=== PATIENT | male | born 1965 | race Caucasian/White ===

== ENCOUNTER 2018-08-02 10:49 | Outpatient (CLI) | payer BC, SELFPAY ==
[2018-08-02 13:09] LABS: ALT 45 U/L (12-78); AST 23 U/L (15-37); Albumin 3.7 g/dL (3.4-5.0); Alkaline Phosphatase 92 U/L (46-116); Anion Gap 4.7 mmol/L (3-11); BUN 24 mg/dL (7-18); Bilirubin, Total 0.9 mg/dL (0.2-1.0); CO2 31.3 mmol/L (21.0-32.0); CREATININE 1.11 mg/dL (0.70-1.30); Calcium 8.7 mg/dL (8.5-10.1); Chloride 103 mmol/L (98-107); Cholesterol 145 mg/dL (50-200); Glucose 93 mg/dL (70-100); HDL Cholesterol 40 mg/dL (40-60); LDL CHOLESTEROL 93 mg/dL (<100); Potassium 4.1 mmol/L (3.5-5.1); Sodium 139 mmol/L (136-145); Total Protein 6.8 g/dL (6.4-8.2); Triglyceride 157 mg/dL (30-150)
== END 2018-08-02 11:09 ==
PROVIDERS: PCP Family Medicine; Visit Provider Family Medicine
DX: I10 Essential (primary) hypertension (principal)
CPT/HCPCS: 36415; 80053; 80061; 83721

== ENCOUNTER 2019-11-07 07:00 | Outpatient (CLI) | payer BC, SELFPAY ==
[2019-11-07 10:38] LABS: Abs Immature Grans 0.03 k/cumm (0.0-0.09); Absolute Basophil Count 0.02 k/cumm (0.0-0.2); Absolute Eosinophil Count 0.08 k/cumm (0.0-0.7); Absolute Lymphocyte Count 2.19 k/cumm (1.2-3.4); Absolute Monocyte Count 0.77 k/cumm (0.11-0.7); Absolute Neutrophil Count 5.01 k/cumm (1.2-6.7); Basophils % 0.2; HCT 45.4 % (40.0-50.0); HGB 15.8 g/dL (13.5-17.5); Immature Grans % 0.4 %; Mean Corp. HGB Concentration 34.8 g/dL (32.0-36.0); Mean Corpuscular Hemoglobin 33.8 pg (27.0-33.0); Mean Platelet Volume 8.4 fL (8.0-11.0); Monocytes % 9.5; Neutrophils % 61.9; Platelet Count 300 x1000/uL (130-400); RBC 4.68 m/cumm (4.50-6.00); RBC Distribution Width 12.9 % (11.8-14.1)
[2019-11-07 10:49] LABS: ALT 44 U/L (16-63); AST 30 U/L (15-37); Alkaline Phosphatase 74 U/L (46-116); Anion Gap 10.1 mmol/L (3-11); BUN 15 mg/dL (7-18); Bilirubin, Total 0.8 mg/dL (0.2-1.0); CO2 28.9 mmol/L (21.0-32.0); CREATININE 0.97 mg/dL (0.70-1.30); Calcium 9.2 mg/dL (8.5-10.1); Chloride 99 mmol/L (98-107); Glucose 97 mg/dL (74-106); Potassium 3.6 mmol/L (3.5-5.1); Sodium 138 mmol/L (136-145); Total Protein 7.4 g/dL (6.4-8.2)
== END 2019-11-07 07:20 ==
PROVIDERS: PCP Family Medicine; Visit Provider Family Medicine
DX: R55 Syncope and collapse (principal)
CPT/HCPCS: 36415; 80053; 85025

== ENCOUNTER 2019-12-20 02:02 | Outpatient (CLI) | payer BC, SELFPAY ==
--- NOTE | 2019-12-20 14:00 | DI.CTLCSR_ITS ---
EXAM: CT CHEST LUNG CANCER SCREEN CLINICAL HISTORY: SCREENING FOR LUNG CANCER, Z12.2 SCREENING FOR MALIGNANT NEOPLASM OF RESPIRATORY O RGANS TECHNIQUE: CT examination of chest was performed utilizing low-dose lung cancer screening protocol. COMPARISON: No exams were available for comparison FINDINGS: The ascending aorta appears ectatic at 4.6-4.7 cm diameter. No mediastinal or hilar adenopathy seen. No pleural effusion. Images obtained through the upper abd omen show a low attenuation left renal lesion consistent with cyst and unremarkable appearance of vis ualized portions of liver, spleen and pancreas. No pulmonary nodule identified. IMPRESSION: Negative low-dose chest CT, category 1. Continue annual screening with LDCT in 12 months Lung RADS Cat 1 - Negative: No nodules and definitely benign nodules
== END 2019-12-20 02:22 ==
PROVIDERS: PCP Family Medicine; Visit Provider Family Medicine
DX: Z12.2 Encounter for screening for malignant neoplasm of respiratory organs (principal); N28.1 Cyst of kidney, acquired; I77.819 Aortic ectasia, unspecified site
CPT/HCPCS: G0297

== ENCOUNTER 2020-02-01 09:42 | Outpatient (CLI) | payer BC, SELFPAY ==
[2020-02-04 22:17] LABS: SARS-CoV-2 RNA Undetected (Undetected); SARS-CoV-2 Specimen Source Nasopharynx
== END 2020-02-01 10:02 ==
PROVIDERS: PCP Family Medicine; Visit Provider Family Medicine
DX: Z11.59 Encounter for screening for other viral diseases (principal)
CPT/HCPCS: U0003

== ENCOUNTER 2020-12-06 01:25 | Outpatient (CLI) | payer BC, SELFPAY ==
--- NOTE | 2020-12-06 09:00 | DI.CTLCSR_ITS ---
EXAM: CT CHEST LUNG CANCER SCREEN CLINICAL HISTORY: Screening for lung cancer, CURRENT SMOKER, F17.200 TECHNIQUE: Imaging Protocol: Axial computed tomography images with coronal and sagittal reformatted images were created and reviewed COMPARISON: CT CT CHEST LUNG CANCER SCREEN from 12/20/2019 FINDINGS: Tracheobronchial tree: Patent where visualized. Mediastinum and Taryn: No dominant adenopathy or fluid collection. Pulmonary parenchyma: No consolidation or dominant measurable mass. No architectural distortion. Lung Nodules: None. Pleura: No effusion or pneumothorax. Heart: The heart is not dilated. Moderate to severe coronary artery calcifications are seen. No peric ardial effusion. Aorta: Ascending aorta ectatic at 4.6 cm minimal calcification. Upper abdomen: Cyst upper pole left kidney. Bones: Degenerative changes in the spine. Soft Tissues: Unremarkable. IMPRESSION: Normal low dose CT lung screening Category Lung RADS Cat 1 - Negative: No nodules and definitely benign nodules Lung-RADS 1.0 CATEGORIES: Category 0 - Prior chest CT exam(s) being located for comparison. Category 1 - Annual screening in 12 months. No nodules or definitely benign nodules. Category 2 - Annual screening in 12 months. Benign appearance. Nodules with low likelihood of becomin g active cancer. Category 3 - 6-month follow-up. Probably benign. Short-term follow-up suggested. Nodules with low lik elihood of becoming active cancer. Category 4A - 3-month follow-up and CT/PET if >8 mm in size. Suspicious finding. Findings which requi re additional testing. Category 4B - Findings which require additional testing and tissue sampling. Suspicious finding. C Added to Any of the Above - History of prior lung cancer screening. S Added to Any of the Above - Significant unexpected other finding. RADIATION DOSE DELIVERED: 116.74mGy.cm Total DLP DATA REPOSITORY: All CT scans at this facility are submitted to the National Radiology Data Registry (NRDR) Dose Index Registry (DIR) with the [employer] (ACR). RADIATION OPTIMIZATION: All CT scans at this facility use at least one of these dose optimization te chniques: automated exposure control; mA and/or kV adjustment per patient size (includes targeted exa ms where dose is matched to clinical indication); or iterative reconstruction.
== END 2020-12-06 01:26 ==
LOC: DI 01:25
PROVIDERS: PCP Family Medicine; Visit Provider Nurse Practitioner Family
DX: F17.200 Nicotine dependence, unspecified, uncomplicated (principal)
CPT/HCPCS: 71271

== ENCOUNTER 2020-12-21 02:20 | Outpatient (CLI) | payer BC, SELFPAY ==
[2020-12-21 08:12] LABS: Hemoglobin A1C 5.7 % (<5.7)
[2020-12-21 09:21] LABS: BUN 21 mg/dL (7-18); CREATININE 0.9 mg/dL (0.70-1.30); Calculated LDL 91 mg/dL (<100); Chloride 101 mmol/L (98-107); Cholesterol 162 mg/dL (<200); Glucose 94 mg/dL (74-106); HDL Cholesterol 50 mg/dL (40-60); Potassium 3.8 mmol/L (3.5-5.1); Sodium 136 mmol/L (136-145); Triglyceride 109 mg/dL (<150)
== END 2020-12-21 02:21 | disposition home or self-care (01) ==
LOC: LBO 02:20
PROVIDERS: Nurse Practitioner Family; PCP Family Medicine; Visit Provider Family Medicine
DX: Z00.00 Encounter for general adult medical examination without abnormal findings (principal); I10 Essential (primary) hypertension; Z13.1 Encounter for screening for diabetes mellitus
CPT/HCPCS: 36415; 80048; 80061; 83036

== ENCOUNTER 2021-01-14 03:22 | Outpatient (CLI) | payer BC, SELFPAY ==
[2021-01-14 10:06] LABS: Source Nasal/Nares
[2021-01-14 12:35] LABS: COVID-19 PCR Negative (Negative)
== END 2021-01-14 03:23 | disposition home or self-care (01) ==
LOC: LBO 03:23
PROVIDERS: PCP Family Medicine; Visit Provider Student in an Organized Health Care Education/Training Program
DX: Z20.822 Contact with and (suspected) exposure to COVID-19 (principal); Z01.818 Encounter for other preprocedural examination
CPT/HCPCS: 87635

== ENCOUNTER 2021-01-16 11:44 | Day surgery (SDC) | payer BC, SELFPAY ==
--- NOTE | 2021-01-16 10:13 | PDOC.DSDIS_ITS ---
Discharge Plan Disposition Patient Disposition: HOME Condition: Good Discharge Details Reason For Visit: Left ECTR and Left Trigger Thumb Release Attending Provider: Mikie Holman Primary Care Provider: Shy Holbrook Home Meds and New Rx's Prescriptions: New hydrocodone-acetaminophen 5-325 mg tablet 1 tab PO Q6H PRNQty: 5 RF: 0 Continued albuterol sulfate 90 mcg/actuation HFA aerosol inhaler 2 puff IH QID PRN (Reason: shortness of breath or wheezing) Qty: 18 RF: 4 amlodipine 10 mg tablet 5 mg PO DAILY Qty: 90 RF: 4 fluoxetine [Prozac] 20 mg capsule 20 mg PO DAILY Qty: 90 RF: 4 losartan 100 mg tablet 100 mg PO DAILY Qty: 90 RF: 4 hydrochlorothiazide 25 mg tablet 25 mg PO QAM Qty: 90 RF: 4 Discharge Instructions Stand Alone Forms: [place] C. Tunnel Release, [place] T. Finger Release Referrals: Mikie Holman MD [ [facility] STAFF PHYSICIAN] - Activity:: Activity as Tolerated Remove Dressings/Wound Care:: 72 hours Shower/Bathe:: 72 hours Diet:: As Tolerated Discharge Orders Discharge Orders: Discharge Order (Routine); Ordered 01/16/21 Ordered By: Colleen Casitllo DS: Diagnosis Discharge Diagnosis (1) Trigger finger of left thumb: Status: Acute (2) Left carpal tunnel syndrome: Status: Acute
[2021-01-16 11:56] VITALS: BP 131/79; PULSE 71; RESP 18; TEMP 36.2; O2SAT 95
[2021-01-16] MEDS: Lactated Ringers 1,000 ML 80 ML IV (12:19)
[2021-01-16] MEDS: ceFAZolin 2 GM/50 ML BAG IVPB (13:30)
[2021-01-16] MEDS: Sodium Bicarbonate 50 MEQ/50 ML VIAL (13:37)
[2021-01-16] MEDS: Acetaminophen 325 MG TAB 650 MG PO (14:28)
[2021-01-16 14:37] VITALS: BP 114/68; PULSE 71; RESP 17; TEMP 36.9; O2SAT 95
--- NOTE | 2021-01-16 15:20 | ROE_ITS ---
Date of service: 01/16/21 Time of Service: 14:20 Operative Note Operative Note DATE OF PROCEDURE: 01/16/21 PRE-OP DIAGNOSIS: Left Carpal Tunnel and Left Trigger Thumb POST-OP DIAGNOSIS: same PROCEDURE: Left Endoscopic Carpal Tunnel Release SURGEON: Mikie Holman ANESTHESIA TYPE: General:No Airway Refer to Anesthesia Record ESTIMATED BLOOD LOSS: 0 PATHOLOGY: none sent TOURNIQUET TIME: 16 COMPLICATIONS: None Patient was transported to: same day Patient's condition: stable Indications: I have seen Pernell in clinic for symptoms of carpal tunnel syndrome and a trigger thumb. The numbness, tingling, and pain limited function. Clinical exam findings confirmed the diagnosis of carpal tunnel syndrome. Nonoperative measures such as bracing, time, activity modifications had been tried but disability and pain persisted. I discussed carpal tunnel release with the patient. I reviewed the risks of the procedure to include, but not limited to, bleeding, infection, pain, stiffness, incomplete release, damage to nerves or vessels, persistent numbness, recurrence. Despite these risks, the patient elected to proceed. Findings: There was tightened carpal tunnel. This was dilated and released successfully with the endoscopic with increased space within the tunnel. The antebrachial fascia was released proximally freeing the median nerve at the wrist. The left thumb had a tightened A1 sangeeta as well as tight synovium proximal to the A1 sangeeta. This was release with extravasation of tenosynovial fluid. Tendons were then released. Procedure Description: Pernell was greeted in the preoperative holding area where the correct side was identified and marked. The consent was reviewed with the patient and signed. The history and physical was updated. All questions were answered. He was taken back to the operating room. The patient was placed into the supine position on the operating room table with the left arm on an arm board. A nonsterile tourniquet was placed high onto the arm. All bony prominences were well padded. Prophylactic antibiotics in the form of Cefazolin were administered. The arm was then prepped with Chloraprep and draped in a standard fashion with stockinette and extremity drape. A timeout to confirm correct identity, side and site, procedure, allergies, anesthesia, and medical concerns was performed. The surgical site was marked in the volar wrist creases in line with the radial border of the fourth ray along with the palpable A1 sangeeta of the thumb. These areas were anesthetized with approximately 10cc of 1% Lidocaine with epinephrine and buffered with sodium bicarbonate. The limb was then exsanguinated with an Esmarch. The skin was incised with a 15 blade, approximately 1cm. The skin only was cut and the deeper tissue was dissected bluntly with a tenotomy scissor , avoiding passing nerve and venous structures. The fascia was penetrated and opened bluntly. A two-prong skin hook was placed under this proximal fascial edge. A series of hamate finders were used to identify and dilate the carpal tunnel. Synovial elevator was used to free synovial attachments to the underside of the transverse carpal ligament. My thumb was kept in the palm to alberta the distal extent of the carpal tunnel and correctly position the hand. The Microaire endoscope was inserted without difficulty and without resistance. Excellent visualization showed horizontally running fibers of the transverse carpal ligament (TCL). The distal extent of the TCL was visualized and the end of the scope palpated with the thumb. The blade was elevated and withdrawn from distal to proximal. The TCL was split into two flaps. The endoscope was reinserted to confirm complete release and any remnant ligament was incised. The scope was withdrawn and the proximal aspect of the carpal tunnel was grossly inspected and appeared release with the median nerve visible. The antebrachial fascia at the level of the wrist was then freed from the overlying skin and then the underlying median nerve with blunt dissection. This was transected longitudinally for about 3cm proximal to the wrist incision. The wound was then irrigated with easy flow of irrigant distally and proximally. The incision was closed with a single 4-0 Nylon suture. Attention was then turned to the trigger thumb. The previously marked incision was then incised longitudinally, proximal and 1 cm. This was taken down bluntly through the skin and soft tissues to reach the surface of the tendon sheath. Dissection was carried out along the tendon sheath mobilizing soft tissues medially and laterally with retractors. I then incised the tendon sheath. There was a band of tissue both proximal and distal. The distal band was likely the A1 sangeeta and the proximal band was thickened soft tissue constraints against the tendon. I used a scissor to release these proximal attachments. After doing so there is a an immediate cruz of tenosynovial fluid. I then continued dissection distally where the A1 sangeeta was encountered. This was released fully until 2 separate leaflets were apparent. I used a hemostat to pull the tendons out of the wound and inspected the visually. They were easily mobile. The thumb was noted to have full flexion and extension. A single 4-0 nylon suture was placed. The wounds were dressed with Xeroform, Gauze, Kerlix and Amauri. The tourniquet was deflated with the initial dressing and held with some pressure. Blood flow returned easily to all digits with capillary refill less than 2 seconds. The patient tolerated the procedure well and was returned to the Same Day Surgery area in a stable condition suffering no known complication.
== END 2021-01-16 14:59 | disposition home or self-care (01) ==
LOC: SUR 11:45
PROVIDERS: PCP Family Medicine; Visit Provider Student in an Organized Health Care Education/Training Program
PROC: 01N54ZZ Release Median Nerve, Percutaneous Endoscopic Approach (ICD-10-PCS; CPT 29848; principal; 2021-01-16 13:45)
PROC: (CPT 26055; 2021-01-16 13:45)
DX: G56.02 Carpal tunnel syndrome, left upper limb (principal); M65.312 Trigger thumb, left thumb
CPT/HCPCS: 29848; 26055; J0690; J1885; J2001

== ENCOUNTER 2021-01-18 09:02 | Outpatient (CLI) | payer BC, SELFPAY ==
[2021-01-19 16:02] LABS: COVID-19 RT-PCR UVMMC Result Negative (Negative)
== END 2021-01-18 09:03 | disposition home or self-care (01) ==
PROVIDERS: PCP Family Medicine; Visit Provider Family Medicine
DX: Z20.822 Contact with and (suspected) exposure to COVID-19 (principal)
CPT/HCPCS: U0003

== ENCOUNTER 2021-09-27 02:42 | Outpatient (CLI) | payer BC, SELFPAY | END 2021-09-27 02:43 | disposition home or self-care (01) | LOC: LBO 02:44 → LBN 14:39 | PROVIDERS: PCP Family Medicine; Visit Provider Ophthalmology | DX: Z20.822 Contact with and (suspected) exposure to COVID-19 (principal) | CPT/HCPCS: 87635 ==

== ENCOUNTER 2021-09-30 11:51 | Day surgery (SDC) | payer BC, SELFPAY ==
[2021-09-27 19:40] LABS: Source Nasal/Nares
[2021-09-27 22:12] LABS: COVID-19 PCR Negative (Negative)
[2021-09-30 12:18] VITALS: BP 156/95; PULSE 62; RESP 16; TEMP 36.8; O2SAT 98
[2021-09-30] MEDS: Tropicam./Phenyleph. (1/2.5%) 5 ML BTL OS ×3 (12:24→12:35)
--- NOTE | 2021-09-30 12:24 | W.ANESPRE ---
General Info Date of Service Date Performed: 09/30/21 Height: 5 ft 10 in Weight: 125.8 kg Body Mass Index (BMI): 39.8 Surgical Procedure: Operation Date: 09/30/21 15:40 Proposed Procedures Side Surgeon p Cataract Extraction with IOL Implant Left Khang Greer MD Meds Allergies and Home Medications Allergies Allergy/AdvReac Type Severity Reaction Status Date / Time prednisone AdvReac Severe WHOLE BODY Verified 09/30/21 12:25 CRAMPS, DRY MOUTH Home Medication Medication Instructions Recorded fluoxetine 20 mg capsule 20 mg PO DAILY #90 tab-cap 01/04/21 hydrochlorothiazide 25 mg tablet 25 mg PO QAM #90 tab-cap 01/04/21 losartan 100 mg tablet 100 mg PO DAILY #90 tab 01/04/21 albuterol sulfate 90 mcg/actuation 2 puff IH QID PRN #18 gm 07/03/21 aerosol inhaler sildenafil 100 mg tablet 50 - 100 mg PO .DAILY DIRECTED 07/03/21 PRN #4 tab amlodipine 5 mg tablet 5 mg PO DAILY #90 tab 07/30/21 Current Visit Medications: Current Medications Generic Name Dose Route Start Last Admin Trade Name Freq PRN Reason Stop Dose Admin Acetaminophen 1,000 mg 09/30/21 06:00 Acetaminophen 500 Mg Tab PO Q4H PRN PRN Miscellaneous Medication 0 ml 09/30/21 06:00 Prednisolone 1%, Moxifloxacin 0.5%, Nepafenac 0.1% 5ml Btl OS DIRECTED [facility] Miscellaneous Medication 0 ml 09/30/21 06:00 09/30/21 12:24 Tropicam./Phenyleph. (1/2.5%) 5 Ml Btl OS 1 drp DIRECTED BILLY Administration Tetracaine HCl 0 ml 09/30/21 06:00 Tetracaine 0.5% 4 Ml Btl OS DIRECTED BILLY PFSH Active Problems Active Problems: Problem Status Onset Code Nuclear sclerotic cataract of left eye H25.12 Posterior subcapsular age-related cataract of left eye H25.042 Cortical cataract of left eye H26.9 Erectile dysfunction N52.9 Left carpal tunnel syndrome G56.02 Trigger finger of left thumb M65.312 Essential hypertension I10 Depressive disorder F32.9 Prediabetes R73.03 Cigarette smoker F17.210 Diverticulosis of colon K57.30 Medical History Active Problem List Nuclear sclerotic cataract of left eye (Acute) Posterior subcapsular age-related cataract of left eye (Acute) Cortical cataract of left eye (Acute) Erectile dysfunction (Acute) Left carpal tunnel syndrome (Acute) Trigger finger of left thumb (Acute) Essential hypertension (Chronic) Depressive disorder (Chronic) Prediabetes (Chronic) Cigarette smoker (Chronic) Diverticulosis of colon (Chronic) Medical History Encounter for pre-operative examination Surgical History Surgical History History of knee replacement R knee History of shoulder surgery R x 2 S/P colonoscopy (11/03/16) S/P right knee arthroscopy (~11/2013) Partial lateral meniscectomy, chondroplasty, lysis of adhesions Tobacco Smoking/Tobacco Use Status: Current every day Tobacco Type: cigarettes Tobacco: How many years used: 30 Passive smoking exposure: Yes Second hand exposure: Yes Alcohol Alcohol Intake: current Alcohol intake frequency: a few times a week Alcohol type: beer Substance Use Substance use: Never Substance use type: does not use Vital Signs and Lab Results Vital Signs Most Recent Vital Signs in EMR: Most Recent Vital Signs Temp Pulse Resp BP Pulse Ox 36.8 C 62 16 156/95 H 98 09/30/21 12:18 09/30/21 12:18 09/30/21 12:18 09/30/21 12:18 09/30/21 12:18 Lab Results Blood Type / Crossmatch: No Data to Display Complete Blood Count: No Data to Display Complete Metabolic Panel: No Data to Display Liver Function Panel: No Data to Display Coagulation Panel: No Data to Display Cardiac Panel: No Data to Display Arterial Blood Gas: No Data to Display Venous Blood Gas: No Data to Display Pancreas Panel: No Data to Display Thyroid Panel: No Data to Display Infectious Disease: Coronavirus (COVID-19)(PCR) Negative (Negative) 09/27/21 14:30 09/27/21 Coronavirus 2019 Source Nasal/Nares 09/27/21 14:30 09/27/21 Blood Cultures: No Data to Display Toxicology Panel: No Data to Display Anesthesia Assessment and Plan Anesthesia History Personal History: No History of Anesthesia Complications Family History: No Family History of Anesthesia Complications Exercise Tolerance Exercise Tolerance: Metabolic Equivalents>4 Pertinent Negatives Pertinent Negatives: No Symptoms of GERD Cardiac & Pulmonary Exam Cardiac Exam: Normal S1/S2 Heart Sounds Pulmonary Exam: Clear Bilateral Breath Sounds Implantable Cardiac Device Does patient have a Pacemaker or an ICD?: No Airway Exam Known Difficult Airway: No Mallampati Class: 2 Mouth Opening: Normal (> 3cm) Thyromental Distance: Greater than 3 cm Neck Range of Motion: Full ROM Neck Circumference: Normal Teeth Condition: Normal Dentition ASA Classification ASA Score: ASA 2 Emergency Case?: No NPO Status NPO Status: NPO Clears >2 hours, Solids >8 hours Anesthesia Plan Resuscitation Status: Full Code Anesthesia Technique: MAC Anesthesia Airway Planned: Natural Airway Monitors Used: Standard Monitors
[2021-09-30 12:34] VITALS: BMI 39.8
[2021-09-30] MEDS: Lidocaine 2% Jelly 6 ML SYR (12:55)
[2021-09-30] MEDS: Tetracaine 0.5% 4 ML BTL OS (12:55)
[2021-09-30] MEDS: Povidone-Iodine Ophth 30 ML BTL (12:56)
[2021-09-30] MEDS: Balanced Salt Soln.-PLUS 500 ML BAG (12:58)
[2021-09-30] MEDS: Duovisc Viscoelastic System EACH 1 EACH (12:58)
[2021-09-30 13:19] VITALS: BP 145/95; PULSE 69; RESP 16; TEMP 36.8; O2SAT 98
--- NOTE | 2021-09-30 13:19 | W.PM.DSUDISC ---
Discharge Plan Disposition Patient Disposition: HOME Condition: Good Discharge Details Attending Provider: Khang Greer Primary Care Provider: Juliocesar Hernandes Home Meds and New Rx's Prescriptions: No Action albuterol sulfate 90 mcg/actuation HFA aerosol inhaler 2 puff IH QID PRN (Reason: shortness of breath or wheezing) Qty: 18 RF: 4 sildenafil [Viagra] 100 mg tablet 50 - 100 mg PO .DAILY DIRECTED PRN (Reason: sexual activity) Qty: 4 RF: 0 fluoxetine [Prozac] 20 mg capsule 20 mg PO DAILY Qty: 90 RF: 4 losartan 100 mg tablet 100 mg PO DAILY Qty: 90 RF: 4 hydrochlorothiazide 25 mg tablet 25 mg PO QAM Qty: 90 RF: 4 amlodipine 5 mg tablet 5 mg PO DAILY Qty: 90 RF: 3 Discharge Instructions Stand Alone Forms: Post-op Topical Cataract, Press Ganey (DSU) Discharge Orders Discharge Orders: Discharge Order (Routine); Ordered 09/30/21 Ordered By: Khang Greer DS: Diagnosis Discharge Diagnosis (1) Nuclear sclerotic cataract of left eye: Status: Resolved (2) Posterior subcapsular age-related cataract of left eye: Status: Resolved (3) Cortical cataract of left eye: Status: Resolved
--- NOTE | 2021-09-30 13:20 | ROE_ITS ---
Date of service: 09/30/21 Time of Service: 13:20 Operative Note Operative Note DATE OF PROCEDURE: 09/30/21 PRE-OP DIAGNOSIS: Nuclear/cortical/posterior subcapsular cataract, left eye POST-OP DIAGNOSIS: same PROCEDURE: Cataract extraction using phacoemulsification with intraocular lens implant, left eye SURGEON: Khang Greer ANESTHESIA TYPE: Local By Surgeon and MAC Refer to Anesthesia Record PATHOLOGY: none sent COMPLICATIONS: None Patient was transported to: same day Patient's condition: stable Implants: [employer] / [employer] Tecnis [id number] Indications: Progressive decreased vision due to cataract, left eye Procedure Description: CATARACT SURGERY OPERATIVE REPORT PREOPERATIVE DIAGNOSIS: 1. Nuclear/cortical/posterior subcapsular cataract, left eye POSTOPERATIVE DIAGNOSIS: Same OPERATION: 1. Cataract extraction using phacoemulsification with posterior chamber intraocular lens implant, left eye. IOL: IOL Warp Tying Machine Knotter/Model: [employer] Marcos / WAYNE Tecnis [id number] IOL Power: + 21.0 diopters IOL Serial Number: [id number] Optic Diameter: 6.0 mm Haptic/Overall Diameter: 13.0 mm PHACO INFO: Tae [employer]ion Vision System with OZil and Active [employer]uidics Cumulative Dispersed Energy (CDE): 6.74 seconds SURGEON: Khang Greer MD, SHERRY ANESTHESIA: Monitored [facility] (MAC), with local sub-tenon's anesthetic infiltration COMPLICATIONS: None SPECIMENS: None INDICATIONS FOR PROCEDURE: The patient is a 56-year-old gentleman with history of diminished visual acuity in his left eye. He is noted to have a significant nuclear/cortical/posterior subcapsular cataract in the right eye. The option of cataract surgery was offered to the patient and he wished to proceed. PROCEDURE: The correct surgical eye was identified and marked as the left eye and the pupil was dilated in the preoperative area using mydriatics and cycloplegics. The dilated pupil size was 7.0 mm. He elected to proceed without sedation.. The patient was brought to the operating room where cardiopulmonary monitoring was instituted and surgical time-out was performed, confirming the correct operative eye and IOL power. Topical anesthesia was administered and ophthalmic povidone-iodine 5% was instilled into the conjunctival fornices. Lidocaine gel was applied to the cornea and the aida-ocular area was prepped with Betadine 10% solution and draped in the usual sterile fashion for intraocular surgery, including an aperture drape. A Tegaderm transparent film dressing was cut in half and used to cover the lashes and lid margins. Care was taken to sequester the lashes and lid margins under the Tegaderm dressing. A lid speculum was placed between the lids of the operative eye and the Vikki-Ivette operating microscope was maneuvered into position. Nalini scissors were then used to make a conjunctival buttonhole approximately 6mm posterior to the limbus in the inferonasal quadrant. Blunt dissection was carried out to expose bare sclera, and a blunt-tipped sub-tenon?s anesthesia cannula was introduced and passed posteriorly along the globe where non- preserved plain lidocaine was injected into posterior sub-Tenon?s space. A sideport knife was used to make a paracentesis port superiorly/superiortemporally. Intraocular phenylephrine/lidocaine was injected int the anterior chamber.. The anterior chamber was filled with viscoelastic. A 2.4mm keratome knife was used to create a half-thickness groove at the limbus and then to construct a three-plane near-clear corneal tunnel extending 2.0mm into clear cornea at the 3:00 position. A flap was raised on the anterior capsule and capsulorhexis forceps were used to complete a continuous curvilinear capsulorhexis of 5.0 mm. Balanced salt solution was then used to perform cortical cleaving hydrodissection and nuclear hydrodelineation until the lens could be freely rotated within the capsular bag. The lens nucleus was then disassembled and removed within the capsular bag and iris plane using phacoemulsification. Residual cortical material was removed using the 45-degree angled silicone I/A tip with 0.3mm port. The posterior capsule was carefully polished to remove as much residual lens epithelial cells as safely possible. The capsular bag was then inflated and the anterior chamber deepened with viscoelastic. The lens implant described above was inserted into the capsular bag using the WAYNE [place] Injector. A Kuglen hook was used to dial the IOL into position. Residual viscoelastic was then removed first from posterior to the IOL, then from the anterior chamber using the I/A handpiece. The lens implant was noted to center nicely within the capsular bag. The incisions were stromally hydrated, and the anterior chamber was reformed using BSS. Then 0.5cc of moxifloxacin 1.0mg/ml were injected into the capsular bag and anterior chamber. The incisions were checked with a Weck spear and found to be secure. Several drops of ophthalmic povidone-iodine 5% were then applied to the eye followed by two drops of Imprimis combination prednisolone/moxifloxacin/nepafenac solution. The drapes were removed and a clear plastic protective eye shield was placed over the eye. The patient was then returned to Same Day Surgery in stable condition.
--- NOTE | 2021-09-30 13:54 | W.ANESPOSTOP ---
Postoperative Evaluation Date, Time and Location Date Performed: 09/30/21 Time Performed: 13:22 Patient Location: Day Surgery Unit Vital Signs Most Recent Imported Vital Signs: Most Recent Vital Signs Temp Pulse Resp BP Pulse Ox 36.8 C 69 16 145/95 H 98 09/30/21 13:19 09/30/21 13:19 09/30/21 13:19 09/30/21 13:19 09/30/21 13:19 Pain Score Most Recent Pain Score: Most Recent Pain Score Pain Level 0 09/30/21 13:19 Assessment Mental Status: Awake (Alert & Oriented to Patient Baseline) Airway and Respiratory Function: Patent airway with normal (patient baseline) respiratory exam Cardiovascular Function: Hemodynamically Stable Hydration Status: Adequately Hydrated Nausea & Vomiting: No Nausea or Vomiting Pain: Pt. Denies Any Pain Peripheral Nerve Block: Patient did not receive a nerve block
== END 2021-09-30 13:39 | disposition home or self-care (01) ==
PROVIDERS: PCP Family Medicine; Visit Provider Ophthalmology
PROC: (CPT 66984; principal; 2021-09-30 15:30)
DX: H25.042 Posterior subcapsular polar age-related cataract, left eye (principal); R73.03 Prediabetes; I10 Essential (primary) hypertension; F17.210 Nicotine dependence, cigarettes, uncomplicated
CPT/HCPCS: 66984; V2632

== ENCOUNTER 2021-12-19 02:11 | Outpatient (CLI) | payer BC, SELFPAY ==
[2021-12-19 15:36] LABS: Hemoglobin A1C 5.7 % (<5.7)
[2021-12-19 16:05] LABS: BUN 27 mg/dL (7-18); Calcium 9.1 mg/dL (8.5-10.1); Chloride 101 mmol/L (98-107); Glucose 103 mg/dL (74-106); Potassium 3.9 mmol/L (3.5-5.1); Sodium 138 mmol/L (136-145)
[2021-12-20 17:40] LABS: PSA, Screening 0.5 ng/mL (0.0-3.5)
[2021-12-23 10:30] LABS: Hepatitis C Ab w Rflx HCV PCR Negative (Negative)
== END 2021-12-19 02:12 | disposition home or self-care (01) ==
LOC: LBO 02:12
PROVIDERS: PCP Nurse Practitioner Family; Visit Provider Nurse Practitioner Family
DX: I10 Essential (primary) hypertension (principal); N52.9 Male erectile dysfunction, unspecified; Z12.5 Encounter for screening for malignant neoplasm of prostate; R73.03 Prediabetes; Z11.59 Encounter for screening for other viral diseases
CPT/HCPCS: 36415; 80048; 84153; 86803; 83036

== ENCOUNTER 2022-02-03 13:02 | Outpatient (CLI) | payer BC, SELFPAY ==
--- NOTE | 2022-02-03 09:30 | DI.RAD_ITS ---
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 TECHNIQUE: 2D digital imaging was performed. Three views. COMPARISON: No exams were available for comparison FINDINGS: BONES: No acute fracture is present. No bony destructive lesion is seen. Tiny heel spurs. JOINTS: No dislocation present. Degenerative changes talonavicular and calcaneal cuboid joints. SOFT TISSUE: Normal. IMPRESSION: Degenerative changes. No acute abnormality. DATA REPOSITORY: RADIATION DOSE DELIVERED:
== END 2022-02-03 13:22 ==
PROVIDERS: PCP Nurse Practitioner Family; Visit Provider Nurse Practitioner Family
DX: M21.42 Flat foot [pes planus] (acquired), left foot (principal); M79.672 Pain in left foot; M77.32 Calcaneal spur, left foot; M19.072 Primary osteoarthritis, left ankle and foot
CPT/HCPCS: 73630

== ENCOUNTER 2022-09-14 10:23 | Emergency (ER) | payer BC, SELFPAY ==
[2022-09-14 10:43] VITALS: BP 140/90; PULSE 87; RESP 18; TEMP 37.3; O2SAT 97
--- NOTE | 2022-09-14 12:36 | ED.GENADUL_ITS ---
Discharge Plan Disposition Patient Disposition: Home Condition: Stable Discharge Details Clinical Impression: Otitis externa of right ear Primary Care Provider: Megan Wharton ED Provider: Rocky Campbell Home Meds and New Rx's Prescriptions: Continued sildenafil [Viagra] 100 mg tablet 50 - 100 mg PO .DAILY DIRECTED PRN (Reason: sexual activity) Qty: 4 0RF Rx Instructions: take 1/2 a tablet to 1 tablet, one hour before intercouRse/ MAX. ONE TABLET OR 100MG/24HOURS amlodipine 10 mg tablet 10 mg PO DAILY Qty: 90 3RF losartan 100 mg tablet 100 mg PO DAILY Qty: 90 4RF fluoxetine [Prozac] 20 mg capsule 20 mg PO DAILY Qty: 90 4RF hydrochlorothiazide 25 mg tablet 25 mg PO QAM Qty: 90 3RF albuterol sulfate 90 mcg/actuation HFA aerosol inhaler 2 puff IH QID PRN (Reason: shortness of breath or wheezing) Qty: 18 4RF Discharge Instructions Instructions: Otitis Externa (ED) Additional Instructions: Cortisporin as directed. Hxqt-bit-vbgthqg medications such as Tylenol and/or Motrin as directed for discomfort. Please watch for new or worsening symptoms and return to the ER for any concerns. Lastly, please contact your primary care provider tomorrow to make them aware of your ER visit and potential need for outpatient reevaluation Medical Decision Making 57-year-old gentleman presents with 2-day history of right ear pain, swelling, discharge. He has no other symptoms. Examination is consistent with right otitis externa. TM unremarkable. Plan to treat with Cortisporin. Patient reports adverse reaction to oral steroids, prednisone. We discussed this was topical and would likely help with the inflammation. Patient comfortable trying the Cortisporin drops, understands he may need to DC and have his prescription changed if he has any adverse reactions Standard discharge and return precautions were provided. Patient understands, is agreeable to this plan, and has no additional questions or concerns upon discharge. This documentation was generated using Active [employer] system, please disregard any oddities of phrase or misspellings. Medical Records Medical records reviewed: Yes I reviewed the patient's medical records. Sign Out No HPI General Mode of arrival: ambulatory . Date/Time Provider Initiated Documentation: 09/14/22 12:12 . Limitations to Documentation: no limitations . Information obtained by: patient . History of Present Illness 57 year old M presents to the emergency department with the chief complaint of R ear pain/drainage, described as mild, with intensity rated at 3. Quality is described as aching, and is localized to the head (ear) and right. Patient reports no radiation. Patient started experiencing this day(s) (2) and it has been constant. No relieving factors improve symptom(s), No exacerbating factors reported . Patient notes no other symptoms.. Patient did receive the following treatments prior to arrival, none Related Data Home Medications Medication Instructions Recorded Confirmed sildenafil 100 mg tablet (Viagra) 50 - 100 mg PO .DAILY DIRECTED 07/03/21 06/23/22 PRN sexual activity #4 tabs amlodipine 10 mg tablet 10 mg PO DAILY #90 tabs 01/15/22 06/23/22 losartan 100 mg tablet 100 mg PO DAILY #90 tabs 01/16/22 06/23/22 fluoxetine 20 mg capsule (Prozac) 20 mg PO DAILY #90 tab-caps 01/28/22 06/23/22 hydrochlorothiazide 25 mg tablet 25 mg PO QAM #90 tab-caps 01/29/22 06/23/22 albuterol sulfate 90 mcg/actuation 2 puff inhalation QID PRN 07/31/22 aerosol inhaler shortness of breath or wheezing #18 grams Previous Rx's Medication Instructions Recorded sildenafil 100 mg tablet (Viagra) 50 - 100 mg PO .DAILY DIRECTED 07/03/21 PRN sexual activity #4 tabs amlodipine 10 mg tablet 10 mg PO DAILY #90 tabs 01/15/22 losartan 100 mg tablet 100 mg PO DAILY #90 tabs 01/16/22 fluoxetine 20 mg capsule (Prozac) 20 mg PO DAILY #90 tab-caps 01/28/22 hydrochlorothiazide 25 mg tablet 25 mg PO QAM #90 tab-caps 01/29/22 albuterol sulfate 90 mcg/actuation 2 puff inhalation QID PRN 07/31/22 aerosol inhaler shortness of breath or wheezing #18 grams Allergies Allergy/AdvReac Type Severity Reaction Status Date / Time prednisone AdvReac Severe WHOLE BODY Verified 06/23/22 13:40 CRAMPS, DRY MOUTH General Stated Complaint: EarProblem ANGEL: 5 Review of Systems Constitutional Constitutional: Denies fever(s) and Denies headache(s) Eyes Eyes: Denies change in vision and Denies eye discharge ENT Ears, Nose, Mouth, and Throat: Reports ear discharge, Reports otalgia, Denies headache(s) and Denies sore throat Respiratory Respiratory: Denies cough Neurologic Neurologic: Denies headache(s) PFSH All Active Problems Otitis externa of right ear (Acute) Essential hypertension (Chronic) Depressive disorder (Chronic) Prediabetes (Chronic) Cigarette smoker (Chronic) Obesity (Chronic) Diverticulosis of colon (Chronic) Descending and sigmoid Erectile dysfunction (Chronic) Pes planus of left foot (Chronic) Medical History COVID-19 (~12/09/21) Surgical History History of carpal tunnel surgery of left wrist (01/16/21) History of knee replacement R knee History of shoulder surgery R x 2 S/P colonoscopy (11/03/16) S/P right knee arthroscopy (~11/2013) Partial lateral meniscectomy, chondroplasty, lysis of adhesions S/P trigger finger release (01/16/21) Left thumb Status post laser cataract surgery of left eye Family History Mother , 69 Diabetes Essential hypertension Depression Hyperlipidemia Pancreatic cancer Father , 82 Diabetes Essential hypertension Prostate cancer Lung cancer Brother No problems noted. Brother No problems noted. Son No problems noted. Daughter No problems noted. Maternal Grandfather No problems noted. Paternal Grandfather No problems noted. Maternal Grandmother No problems noted. Paternal Grandmother No problems noted. Social History Smoking/Tobacco Use Status: Current every day Tobacco Type: cigarettes Tobacco: How many years used: 40 Second Hand Exposure: Yes Smoking risk assessment performed?: Yes Alcohol Intake: current Alcohol Intake frequency: a few times a week Alcohol type: hard liquor Drug use: Never Substance use type: does not use Do you need help understanding health information?: Never current occupation: [employer] Pets and animals: No Sexually active: Yes Do you think of yourself as: straight/heterosexual Current gender identity: male What is your relationship status?: living with partner How often do you talk on the phone with friends or family?: twice per week How often do you get together with friends or relatives?: twice per week How often do you attend tenriism or scientologist services?: 4 or more times per year Do you belong to any clubs or organized social groups?: no Panel score (0-1 are the most socially isolated patients): 3 What type of physical activity do you participate in: walking Duration: 15-30 minutes/day Frequency: daily Ashlie/Evangelical: Hindu Special ashlie needs: No Seatbelt use: always Helmet use: Yes Helmet use: sometimes Drive intox 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 Do you feel safe at home: Yes Do you feel safe in your relationship?: Yes Exam Const General: cooperative, healthy appearing, comfortable and no acute distress Orientation: alert and awake HENMS Head: normal to inspection, normocephalic and atraumatic Ears: external ears normal, TM's normal bilaterally and EAC abnormal erythema on the right, edema on the right and otic discharge purulent on the right Mouth: moist mucous membranes Throat: posterior oropharynx normal Other: Bilateral mastoid unremarkable Eyes General: appearance normal, both eyes and all related structures Conjunctivae: conjunctivae normal Neck Neck: normal visual inspection, full ROM, no lymphadenopathy, no meningeal signs, trachea midline, supple and nontender Resp Effort & Inspection: normal respiratory effort and able to speak in complete sentences Skin General skin exam: no rashes or lesions noted Neuro General: patient alert, patient awake, moves all extremities and no focal motor deficits Sensory Exam: no sensory deficits noted Psych Appearance: grossly normal Mental Status: mental status grossly normal Course Vital Signs Vital signs: Vital Signs Temperature 37.3 C 09/14/22 10:43 Pulse 87 09/14/22 10:43 Respiratory Rate 18 09/14/22 10:43 Blood Pressure 140/90 09/14/22 10:43 Pulse Oximetry 97 09/14/22 10:43 Temperature 37.3 C 09/14/22 10:43 Pulse 87 09/14/22 10:43 Respiratory Rate 18 09/14/22 10:43 Blood Pressure 140/90 09/14/22 10:43 Pulse Oximetry 97 09/14/22 10:43 Oxygen Delivery Method Room Air 09/14/22 10:43 Oxygen Flow Rate 0 09/14/22 10:43 Pain Level 7 09/14/22 10:43
== END 2022-09-14 12:44 | disposition home or self-care (01) ==
PROVIDERS: Emergency Provider Physician Assistant; PCP Nurse Practitioner Family
DX: H60.591 Other noninfective acute otitis externa, right ear (principal)
CPT/HCPCS: 99283

== ENCOUNTER 2022-12-10 01:37 | Outpatient (CLI) | payer BC, SELFPAY ==
[2022-12-10 12:56] LABS: Hemoglobin A1C 5.6 % (<5.7)
[2022-12-10 13:00] LABS: Anion Gap 11.4 mmol/L (3-11); BUN 22 mg/dL (7-18); CO2 26.6 mmol/L (21.0-32.0); CREATININE 1.1 mg/dL (0.70-1.30); Calcium 9.4 mg/dL (8.5-10.1); Calculated LDL 87 mg/dL (<100); Chloride 99 mmol/L (98-107); Cholesterol 193 mg/dL (<200); Estimated GFR 77.33 (mL/min/1.73m2); Glucose 106 mg/dL (74-106); HDL Cholesterol 54 mg/dL (40-60); Potassium 3.7 mmol/L (3.5-5.1); Sodium 137 mmol/L (136-145); Triglyceride 261 mg/dL (<150)
== END 2022-12-10 01:38 | disposition home or self-care (01) ==
LOC: LOS 01:37
PROVIDERS: PCP Nurse Practitioner Family; Visit Provider Nurse Practitioner Family
DX: I10 Essential (primary) hypertension (principal); R73.03 Prediabetes
CPT/HCPCS: 36415; 80048; 80061; 83036

== ENCOUNTER 2023-03-16 08:08 | Outpatient (CLI) | payer BC, SELFPAY ==
[2023-03-16 13:45] LABS: Anion Gap 8.7 mmol/L (3-11); BUN 22 mg/dL (7-18); CO2 27.3 mmol/L (21.0-32.0); Calcium 8.6 mg/dL (8.5-10.1); Chloride 100 mmol/L (98-107); Glucose 104 mg/dL (74-106); Potassium 3.9 mmol/L (3.5-5.1); Sodium 136 mmol/L (136-145)
== END 2023-03-16 08:09 | disposition home or self-care (01) ==
LOC: LOS 08:08
PROVIDERS: PCP Nurse Practitioner Family; Visit Provider Nurse Practitioner Family
DX: I10 Essential (primary) hypertension (principal)
CPT/HCPCS: 36415; 80048

== ENCOUNTER 2023-03-16 08:08 | Outpatient (REF) | payer BC, SELFPAY | END 2023-03-16 08:09 | disposition home or self-care (01) | LOC: LBN 08:08 | PROVIDERS: PCP Nurse Practitioner Family; Visit Provider Nurse Practitioner Family | DX: R31.29 Other microscopic hematuria (principal) | CPT/HCPCS: 87086 ==

== ENCOUNTER 2023-08-21 10:31 | Outpatient (CLI) | payer BC, SELFPAY ==
--- NOTE | 2023-08-21 10:30 | RT.EKG_ITS ---
APPROVED REPORT Exam: Resting ECG Reason for Exam: New onset SOB with exertion Patient Location: O HR:77 bpm ECG Measurements Heart Rate 77 AXIS AL 167 P -1 QRSd 107 QRS -3 QT 398 T 70 QTc 451 Conclusion Sinus rhythm...normal P axis, V-rate 50- 99 Normal Electrocardiogram
== END 2023-08-21 10:32 | disposition home or self-care (01) ==
LOC: DI.CM 10:32
PROVIDERS: PCP Nurse Practitioner Family; Visit Provider Nurse Practitioner Family
DX: R06.09 Other forms of dyspnea (principal)
CPT/HCPCS: 93010

== ENCOUNTER 2023-08-21 10:43 | Outpatient (CLI) | payer BC, SELFPAY ==
[2023-08-21 12:12] LABS: Abs Immature Grans 0.02 10^3/uL (0.0-0.06); Absolute Basophil Count 0.03 10^3/uL (0.0-0.2); Absolute Eosinophil Count 0.13 10^3/uL (0.0-0.7); Absolute Lymphocyte Count 2.08 10^3/uL (1.2-3.4); Absolute Monocyte Count 0.88 10^3/uL (0.1-0.8); Absolute Neutrophil Count 4.56 10^3/uL (1.2-6.7); Basophils % 0.4; Eosinophils % 1.7; HCT 41.5 % (40.0-50.0); HGB 14.4 g/dL (13.5-17.5); Immature Grans % 0.3; MCH 33.6 pg (27.0-33.0); MCHC 34.7 % (32.0-36.0); MCV 97 fL (80-95); MPV 8.3 fL (8.0-11.0); Monocytes % 11.4; Neutrophils % 59.2; Platelet Count 257 10^3/uL (130-400); RBC 4.28 10^6/uL (4.36-5.78); RDW-SD 45.8 fL
[2023-08-21 12:30] LABS: ALT 47 U/L (16-63); AST 28 U/L (15-37); Albumin 4.1 g/dL (3.4-5.0); Alkaline Phosphatase 67 U/L (46-116); BUN 19 mg/dL (7-18); Bilirubin, Total 0.8 mg/dL (0.2-1.0); CREATININE 1.1 mg/dL (0.70-1.30); Calcium 8.9 mg/dL (8.5-10.1); Chloride 99 mmol/L (98-107); Estimated GFR 76.85 (mL/min/1.73m2); Glucose 123 mg/dL (74-106); NT-proBNP 19 pg/mL (<300); Potassium 3.8 mmol/L (3.5-5.1); Sodium 135 mmol/L (136-145); TSH (W/Ref FT4) 2.44 uIU/mL (0.36-3.74); Total Protein 7.5 g/dL (6.4-8.2)
== END 2023-08-21 10:44 | disposition home or self-care (01) ==
LOC: LOS 10:43
PROVIDERS: PCP Nurse Practitioner Family; Referring Provider Nurse Practitioner Family; Visit Provider Nurse Practitioner Family
DX: R06.09 Other forms of dyspnea (principal)
CPT/HCPCS: 36415; 80053; 83880; 84443; 85025

== ENCOUNTER 2023-08-24 10:39 | Outpatient (CLI) | payer BC, SELFPAY ==
[2023-08-24] MEDS: Levalbuterol HFA 15 GM INH 4 PUFF IH (16:10)
[2023-08-24] MEDS: Inhaler, Assist Device 1 EACH MC (16:10)
--- NOTE | 2023-08-25 16:08 | W.PFT ---
Date of service: 08/24/23 Time of Service: 14:49 Pulmonary Function Test Result Indications: Dyspnea Interpretation Spirometry: There is no airflow limitation. No bronchodilator response. Lung Volumes: There is some air trapping Diffusion Capacity: Normal diffusion Airway Pressure: Normal airways resistance Impression Normal pulmonary function with some air trapping which can be seen in emphysema of asthma. Clinical Correlation therefore is recommended.
== END 2023-08-24 10:40 | disposition home or self-care (01) ==
LOC: RT 10:39
PROVIDERS: PCP Nurse Practitioner Family; Visit Provider Nurse Practitioner Family
DX: R06.09 Other forms of dyspnea (principal); Z87.891 Personal history of nicotine dependence
CPT/HCPCS: 94060; 94726; 94729

== ENCOUNTER → 2023-08-25 00:51 | Outpatient (CLI) | payer BC, SELFPAY ==
--- NOTE | 2023-08-25 08:00 | DI.NM_ITS ---
APPROVED REPORT Exam: Pharmacologic Patient Location: Out-Patient Room/Bed: Stress Nurse: Keya Rodríguez RN Ordering Provider:PATIENCE MATTHEWS, Contact Number: [phone] BMI: 45.47 Baseline Rhythm: Sinus Rhythm Indications: SLADE, Medical History Medical History: HTN, depression, prediabetes, obesity Cardiac Medications: Amlodipine, aspirin, hydrochlorathiazide, losartan, nicotine patch, amiloride, s ildenafil Allergies: Prednisone Cardiac Risk Factors: HTN, HLD, prediabetes, former smoker, obesity Previous Cardiac Procedures: None Pretest Chest Pain Characteristics: None Exercise History: Indeterminate Physical Disabilities: Left ankle Lung Sounds: Clear to auscultation Heart Sounds: Regular Stress Test Details Test: Pharmacologic stress testing performed using 0.4 mg of regadenoson per 5 mL given IV over 10 s econds. Reason for pharmacologic stress test: Ankle injury. Nuclear Acquisition: Rest Tc-99m/Stress Tc-99m 1 day Rest Isotope: Tc-99m Sestamibi. Dose: 12.0 Date: 08/25/2023 Injection Time: 1100 Stress Isotope: Tc-99m Sestamibi. Dose: 36.0 Date: 08/25/2023 Injection Time: 13:16 HR Resting HR Supine: 75 bpm Max Heart Rate (APMHR): 160.772962 bpm Resting HR Standin bpm Target HR (85% APMHR): 136.217097 bpm Max HR Achieved: 81 bpm % of APMHR: 50.63 Recovery HR: 64 bpm BP Resting BP Supine: 128/78 mmHg Resting BP Standin/76 mmHg Max BP: 132/92 mmHg Recovery BP: 128/80 mmHg ECG Resting ECG: Sinus Rhythm Ectopy: None Stress ECG: Sinus Rhythm ST Change: Nondiagnostic low heart rate Arrhythmia: None Recovery ECG: Sinus Rhythm Recovery ST Change: Nondiagnostic low heart rate Recovery Arrhythmia: None Clinical Stress Symptoms: Mild SOB Angina Score: None Rate Pressure Product: [id number] Stress ECG Conclusion 1. Resting electrocardiogram was within normal limits 2. Patient underwent testing using pharmacologic stress with regadenoson 3. Peak heart rate achieved was 51% of predicted maximal for age 4. The electrocardiographic portion of the test was nondiagnostic 5. The MPI report Stress Test Summary STAGE HR BP SpO2 Symptoms NOTES Supine 75 128/78 Standing 71 130/76 1 min post Lexiscan injection 70 130/92 93 Mild SOB 3 min post Lexiscan injection 69 132/82 95 SOB resolved 6 min post Lexiscan injection 64 128/80 95 MPI Conclusion Myocardial perfusion is normal. There is no ischemia or evidence of prior infarction Ejection fraction is 54%, wall motion is normal Radiologist Interpretation Radiologist Interpretation by: Tim Guzman MD Interpretation Date/Time: 08/25/2023 15:58:20
--- NOTE | 2023-08-25 08:00 | DI.RAD_ITS ---
Exam(s) XR CHEST 2V PA LATERAL EXAM: XR CHEST 2V PA LATERAL CLINICAL HISTORY: YANY, R06.09 TECHNIQUE: 2D digital imaging was performed of the chest. Two images were obtained. PA and lateral views were obtained. COMPARISON: CT CT CHEST LUNG CANCER SCREEN from 12/25/2022 FINDINGS: MEDIASTINUM: Normal. HEART: Normal. PULMONARY VASCULATURE: Normal. LUNGS: Clear. PLEURAL SPACE: No pleural effusion or pneumothorax. BONE:Within normal limits for the patient's age. OTHER FINDINGS:Normal. IMPRESSION: No acute pulmonary findings. DATA REPOSITORY: RADIATION DOSE DELIVERED:
== END ==
PROVIDERS: PCP Nurse Practitioner Family; Visit Provider Nurse Practitioner Family
DX: R06.09 Other forms of dyspnea (principal)
CPT/HCPCS: 78452; 71046; 93017

== ENCOUNTER 2024-03-15 05:12 | Outpatient (CLI) | payer BC, SELFPAY ==
[2024-03-15 13:28] LABS: Hemoglobin A1C 5.5 % (<5.7)
[2024-03-15 14:01] LABS: ALT 42 U/L (16-63); AST 25 U/L (15-37); Albumin 4.1 g/dL (3.4-5.0); Alkaline Phosphatase 92 U/L (46-116); Anion Gap 6.8 mmol/L (3-11); BUN 23 mg/dL (7-18); Bilirubin, Total 0.9 mg/dL (0.2-1.0); CO2 28.2 mmol/L (21.0-32.0); CREATININE 1.2 mg/dL (0.70-1.30); Calcium 8.9 mg/dL (8.5-10.1); Calculated LDL 98 mg/dL (<100); Chloride 104 mmol/L (98-107); Cholesterol 176 mg/dL (<200); Estimated GFR 69.23 (mL/min/1.73m2); Glucose 119 mg/dL (74-106); HDL Cholesterol 62 mg/dL (40-60); Potassium 3.5 mmol/L (3.5-5.1); Sodium 139 mmol/L (136-145); TSH (W/Ref FT4) 1.67 uIU/mL (0.36-3.74); Total Protein 7.7 g/dL (6.4-8.2); Triglyceride 84 mg/dL (<150)
[2024-03-15 22:51] LABS: PSA, Screening 0.2 ng/mL (<=4.5)
== END 2024-03-15 05:13 | disposition home or self-care (01) ==
LOC: LBO 05:12
PROVIDERS: PCP Nurse Practitioner Family; Visit Provider Nurse Practitioner Family
DX: Z00.00 Encounter for general adult medical examination without abnormal findings (principal); Z12.5 Encounter for screening for malignant neoplasm of prostate
CPT/HCPCS: 36415; 80053; 80061; 84153; 83036; 84443

== ENCOUNTER 2024-12-27 12:40 | Outpatient (CLI) | payer BC, SELFPAY ==
[2024-12-27 15:49] LABS: Anion Gap 8.2 mmol/L (3-11); BUN 25 mg/dL (7-18); CO2 27.8 mmol/L (21.0-32.0); Calcium 8.4 mg/dL (8.5-10.1); Calculated LDL 74 mg/dL (<100); Chloride 107 mmol/L (98-107); Cholesterol 158 mg/dL (<200); Estimated GFR 85.63 (mL/min/1.73m2); Glucose 133 mg/dL (74-106); HDL Cholesterol 54 mg/dL (>or=40); Potassium 3.5 mmol/L (3.5-5.1); Sodium 143 mmol/L (136-145); Triglyceride 152 mg/dL (<150)
[2024-12-27 23:27] LABS: PSA, Screening 0.3 ng/mL (<=4.5)
[2024-12-28 00:25] LABS: HBs Antibody, Quant <3.1 mIU/mL (See Note); Hep B Surface Ab Negative (See Note); Hepatitis B Core Antibody Negative (Negative); Hepatitis B Surface Antigen Negative (Negative)
[2024-12-28 00:29] LABS: HIV-1/2 Ag & Ab Screen Negative (Negative)
== END 2024-12-27 12:41 | disposition home or self-care (01) ==
PROVIDERS: PCP Nurse Practitioner Family; Visit Provider Nurse Practitioner Family
DX: Z12.5 Encounter for screening for malignant neoplasm of prostate (principal); Z11.4 Encounter for screening for human immunodeficiency virus [HIV]; I10 Essential (primary) hypertension; Z11.59 Encounter for screening for other viral diseases
CPT/HCPCS: 36415; 80048; 80061; 84153; 86704; 86706; 87340; 87389

== ENCOUNTER 2025-02-09 10:03 | Outpatient (CLI) | payer BC, SELFPAY ==
--- NOTE | 2025-02-09 08:15 | DI.RAD_ITS ---
Exam(s) XR WRIST RT COMPLETE EXAM: XR WRIST RT COMPLETE CLINICAL HISTORY: wrist pain. TECHNIQUE: 2D digital imaging was performed. COMPARISON: No exams were available for comparison FINDINGS: 3 views No evidence of acute fracture of the distal radius and ulna and there is no significant ulnar varianc e. However, there is abnormal widening of the scapholunate distance consistent with disruption of the sc apholunate ligament. There does not appear to be significant proximal migration of the capitate. Th ere is a E nonexpansile cyst seen in the distal half of the scaphoid and another nonexpansile cyst is noted in the triquetrum bone. Distal carpal row appears unremarkable with the exception of some mil d degenerative change in the 1st carpometacarpal joint. IMPRESSION: There is abnormal widening of the scapholunate distance implying full-thickness tearing of the scapho lunate ligament. There is also slight malposition of the lunate. Recommend follow-up CT or MRI a to determine if and extent of lunate or perilunate dislocation DATA REPOSITORY: RADIATION DOSE DELIVERED:
== END 2025-02-09 10:04 | disposition home or self-care (01) ==
LOC: DIORS 10:03
PROVIDERS: PCP Nurse Practitioner Family; Visit Provider Physician Assistant
DX: M25.531 Pain in right wrist (principal); S63.094A Other dislocation of right wrist and hand, initial encounter
CPT/HCPCS: 73110

== ENCOUNTER 2025-05-30 02:00 | Outpatient (CLI) | payer BC, SELFPAY ==
--- NOTE | 2025-05-30 07:15 | DI.US_ITS ---
Exam(s) US NEEDLE LOCAL OTHER WO RAD EXAM: left-sided TR 5 thyroid nodule,ULTRASOUND GUIDED BX,E04.1 COMPARISON: No exams were available for comparison TECHNIQUE: Ultrasound performed using standard protocol. FINDINGS: Sonography was provided for Dr. Dodge during the performance of a left thyroid nodule biopsy. Please refer to the procedure report for complete details. DATA REPOSITORY:
--- NOTE | 2025-05-30 12:15 | PAPNONF_PTH ---
PATIENT: Pernell Palomares LOC: [facility] U#:[id number] AGE/SX: 59/M ROOM: RE05/30/[address]: Karla Concepcion : 1965 BED: DIS: 05/30/2025 SPEC #: [id number] RECD: 05/30/25 13:12 STATUS: JAISON REQ #: [id number] URBAN: 05/30/25 12:[address]: Adrian Dodge DEPT: [facility] Cytology RECD BY: Johanny Singh ENTERED: 05/30/25 13:13 SP TYPE: PEYMAN DELGADILLO DR: Megan Wharton, [facility] Karla Concepcion Tissues: 1 - BODY FLUID CYTO-FINE NEEDLE ASPIRATE-[facility] Procedures: BODY FLUID CYTO-FINE NEEDLE ASPIRATE-[facility] Comments: [id number] (PATH FNA CONSULT) (REFRIGERATED)
--- NOTE | 2025-05-30 13:11 | W.PROCNOTE ---
Date of service: 05/30/25 Time of Service: 13:11 Procedure Note Date of procedure: 05/30/25 Procedure: Ultrasound-guided FNA, left thyroid nodule, pathology present Procedure Diagnosis: Left thyroid nodule Procedure Indications: The patient has a left-sided hypoechoic thyroid nodule meeting criteria for biopsy. Options were explained to the patient regarding further management. He elected to undergo the above procedure. Consent was sought and signed prior to the procedure. Risks and benefits were discussed at length. Procedure Description: The patient was positioned in a supine position with his neck slightly extended. He was prepped and draped in appropriate fashion and ultrasound was used to localize the left sided thyroid nodule. 2% lidocaine with 1/100,000 epinephrine was then injected in the skin and subcutaneous tissues overlying the thyroid nodule. A 25-gauge needle was passed into the thyroid nodule repeatedly. The specimen was handed to pathology who verified cellular adequacy. Additional pass was made for more material. 2 additional passes in addition to this were made for potential Afirma testing. After ensuring adequate hemostasis, the sterile dressing was applied to the site and the patient was allowed to sit, stand, and ambulate. His vital signs remained stable. He will call if he does not hear from me within 1 week with regard to pathology results. He will remove the bandage in a couple of hours and not replace it. He will avoid anything strenuous. He knows he should quit smoking. He will use ibuprofen or Tylenol for any discomfort. He will call with any signs of infection or any concerns.
== END 2025-05-30 02:20 ==
LOC: DI 02:00
PROVIDERS: PCP Nurse Practitioner Family; Visit Provider Registered Nurse Maternal Newborn
DX: E04.1 Nontoxic single thyroid nodule (principal)
CPT/HCPCS: 10005; 76942; 88104

== ENCOUNTER 2025-06-01 03:16 | Outpatient (CLI) | payer BC, SELFPAY ==
--- NOTE | 2025-06-01 07:45 | DI.MRI_ITS ---
Exam(s) MR UPPER JOINT LT WO EXAM: MR UPPER JOINT LT WO CLINICAL HISTORY: Severe decrease in ROM left shoulder, anterior,stiffness lt shoulder, m25.6 TECHNIQUE: Multiplanar multisequence MRI of the shoulder was performed. COMPARISON: CR XR SHOULDER LT COMPLETE 2+V from 06/01/2025 FINDINGS: MARROW:There is no evidence of fracture, Hill-Sachs deformity, nor ominous osseous lesions. GLENOHUMERAL JOINT: There are significant degenerative changes in the glenohumeral joint. There is joint space narrowing with multilevel loss of articular cartilage. There is also some subarticular edema in the humeral head. There did no degenerative subarticular cysts in the osseous glenoid fossa. There is a small joint effusion. There is some synovial thickening but there are no distinct loose intra-articular bodies evident in the joint space. ROTATOR CUFF MECHANISM: AC JOINT/ACROMIUM: Are also significant degenerative changes at the AC joint level.. There is also an os acromial evident.. Supraspinatus: There is a full-thickness tear of the supraspinatus tendon with retraction musculotendinous junction to the mid humeral head level. There is some mild atrophy of the supraspinatus muscle belly. Infraspinatus: There is tendinosis signal and there is partial-thickness tearing of the infraspinatus tendon on the articular surface side. Mild atrophy. Teres Minor: Tendon is intact. There is, however, some fatty atrophy evident in the teres minor muscle belly. This may indicate abnormality in the posterior branch of the axillary nerve Subscapularis/anterior cuff: There is some attenuation of the insertional tendon anterior to the lesser tuberosity. Appearance is partial-thickness tearing. There does not appear to be an obvious full-thickness tear of this structure. BICEPS TENDON: There is significant attenuation of the biceps tendon within the intertubercular groove signifying tearing. The intra-articular aspect is also difficult to identified as a separate structure implying that it is probably torn. LABRUM: There is significant signal abnormality and attenuation of the superior labrum consistent with chronic type SLAP tear and there is also tearing in the posterior labrum. There is also tearing in the anterior labrum and some attenuation of the inferior labrum. The inferior glenohumeral ligament appears intact QUADRILATERAL SPACE: No evidence of mass in the region of the axillary nerve and dorsal circumflex humeral vessels. Visualized triceps muscle at this level appears unremarkable. IMPRESSION: 1. There is full-thickness tear of the supraspinatus tendon with retraction of the musculotendinous junction to the mid humeral head level. Some fluid is seen in the sub acromial bursal space. 2. There are partial-thickness tears of the infraspinatus and anterior cuff- subscapularis. There does not appear to be a tendon tear of the teres minor but the teres minor exhibits some fatty atrophy appearance. 3. Significant attenuation and tearing of the biceps tendon within the intertubercular groove and within the intra articular compartment. Presumed torn. There is also multilevel tearing of the labrum with labral tears evident superiorly, posteriorly, and anteriorly. 4. 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 There is a small joint effusion. No obvious loose intra- articular bodies. Some synovial thickening is evident. 5. There are degenerative changes in the AC joint. Also noted is the presence of os acromiale. DATA REPOSITORY:
--- NOTE | 2025-06-01 13:38 | DI.RAD_ITS ---
Exam(s) XR SHOULDER LT COMPLETE 2+V EXAM: XR SHOULDER LT COMPLETE 2+V CLINICAL HISTORY: Severe decrease in ROM left shoulder, anterior,m25.612, stiffness lt should. TECHNIQUE: 2D digital imaging was performed of the left shoulder. Five images were obtained. AP, Grashey, Y-view and axillary views were obtained. COMPARISON: There are no priors for comparison. FINDINGS: BONES: No acute fracture is present. No bony destructive lesion is seen. JOINTS: No dislocation present. There are mild degenerative changes seen at the acromioclavicular and glenohumeral joints. SOFT TISSUE: Normal. IMPRESSION: Mild degenerative changes seen in the left shoulder. DATA REPOSITORY: RADIATION DOSE DELIVERED:
== END 2025-06-01 03:36 ==
LOC: DI 03:17
PROVIDERS: PCP Nurse Practitioner Family; Visit Provider Nurse Practitioner Family
DX: M25.612 Stiffness of left shoulder, not elsewhere classified (principal); M75.122 Complete rotator cuff tear or rupture of left shoulder, not specified as traumatic
CPT/HCPCS: 73030; 73221

== ENCOUNTER 2025-09-01 06:50 | Day surgery (SDC) | payer BC, SELFPAY ==
[2025-09-01 07:05] VITALS: BP 111/79; PULSE 71; RESP 16; TEMP 36.7; O2SAT 98
[2025-09-01] MEDS: Tropicam./Phenyleph. (1/2.5%) 5 ML BTL OD ×3 (07:27→07:41)
--- NOTE | 2025-09-01 07:54 | W.ANESPRE ---
General Info Date of Service Date Performed: 09/01/25 Height: 5 ft 9 in Weight: 110.6 kg Body Mass Index (BMI): 36.0 Surgical Procedure: Operation Date: 09/01/25 08:25 Proposed Procedure Side Surgeon p Cataract Extraction with IOL Implant Right Khang Greer MD Meds Allergies and Home Medications Allergies Allergy/AdvReac Type Severity Reaction Status Date / Time prednisone AdvReac Severe WHOLE BODY Verified 09/01/25 07:18 CRAMPS, DRY MOUTH Home Medication Medication Instructions Recorded aspirin 81 mg tablet,delayed 81 mg PO DAILY 02/02/23 release albuterol sulfate 90 mcg/actuation 2 puff inhalation QID PRN 06/16/25 aerosol inhaler shortness of breath or wheezing #18 grams amiloride 5 mg tablet 5 mg PO DAILY #90 tabs 06/16/25 amlodipine 10 mg tablet 10 mg PO DAILY #90 tabs 06/16/25 budesonide-formoterol HFA 160 2 inh inhalation BID #10.2 grams 06/16/25 mcg-4.5 mcg/actuation aerosol inhaler fluoxetine 20 mg capsule (Prozac) 20 mg PO DAILY #90 caps 06/16/25 hydrochlorothiazide 25 mg tablet 25 mg PO QAM #90 tabs 06/16/25 losartan 100 mg tablet 100 mg PO DAILY #90 tabs 06/16/25 tirzepatide (weight loss) 15 15 mg (0.5 mL) subcut QWEEK #6 mL 06/16/25 mg/0.5 mL subcutaneous pen injector Current Visit Medications: Current Medications Generic Name Dose Route Start Last Admin Trade Name Carlitosq PRN Reason Stop Dose Admin Acetaminophen 1,000 mg 09/01/25 06:00 Acetaminophen 500 Mg Tab PO 10/01/25 05:59 Q4H PRN PRN Balanced Salt Solution 500 ml 09/01/25 06:00 Balanced Salt Soln.-Plus 500 Ml Bag OP 10/01/25 05:59 DIRECTED BILLY Miscellaneous Medication 0 ml 09/01/25 06:00 Prednisolone 1%, Moxifloxacin 0.5%, Bromfenac 0.09% 5.6ml Btl OD 10/01/25 05:59 DIRECTED BILLY Miscellaneous Medication 0 ml 09/01/25 06:00 09/01/25 07:41 Tropicam./Phenyleph. (1/2.5%) 5 Ml Btl OD 10/01/25 05:59 1 drp DIRECTED BILLY Administration Tetracaine HCl 0 ml 09/01/25 06:00 Tetracaine 0.5% 4 Ml Btl OD 10/01/25 05:59 DIRECTED BILLY PFSH Active Problems Active Problems: Problem Status Onset Code Mixed hearing loss of left ear Acute H90.72 Bilateral sensorineural hearing loss Acute H90.3 Patulous eustachian tube of left ear Acute H69.02 Rupture of left proximal biceps tendon Acute S46.212A Left rotator cuff tear arthropathy Acute M75.102, M12.812 Arthritis of left glenohumeral joint Acute M19.012 Essential tremor Acute G25.0 Thyroid nodule Acute E04.1 Dislocation of lunate bone of right wrist Acute S63.094A Ganglion cyst of volar aspect of right wrist Chronic M67.431 Resting tremor Chronic G25.2 Asthma Chronic J45.909 Essential hypertension Chronic I10 Major depressive disorder, recurrent Chronic F33.9 Obesity Chronic E66.9 Ascending aorta dilation Chronic I77.810 Cigarette smoker Chronic F17.210 Diverticulosis of colon Chronic K57.30 Pes planus of left foot Chronic M21.42 Erectile dysfunction Chronic N52.9 Surgical History Surgical History Status post left foot surgery (12/21/23) for posterior tibial tendonitis Status post laser cataract surgery of left eye S/P trigger finger release (01/16/21) Left thumb History of carpal tunnel surgery of left wrist (01/16/21) History of shoulder surgery R x 2 S/P right knee arthroscopy (~11/2013) Partial lateral meniscectomy, chondroplasty, lysis of adhesions S/P colonoscopy (11/03/16) Tobacco Smoking/Tobacco Use Status: Current-Occasional Tobacco Type: cigarettes Passive smoking exposure: Yes Second hand exposure: Yes Alcohol Alcohol Intake: current Alcohol intake frequency: 0-2 drinks per day Alcohol type: hard liquor Substance Use Substance use: Never Substance use type: does not use Vital Signs and Lab Results Vital Signs Most Recent Vital Signs in EMR: Most Recent Vital Signs Temp Pulse Resp BP Pulse Ox 36.7 C 71 16 111/79 98 09/01/25 07:05 09/01/25 07:05 09/01/25 07:05 09/01/25 07:05 09/01/25 07:05 Imaging and Studies Imaging and Studies Study information below may be from another EMR and interpreted by another provider. Please see original notes in EMR for more complete details. EKG Summary: 08/21/23: Exam: Resting ECG Reason for Exam: New onset SOB with exertion Patient Location: O HR:77 bpm ECG Measurements Heart Rate 77 AXIS NJ 167 P -1 QRSd 107 QRS -3 QT 398 T70 QTc 451 Conclusion Sinus rhythm...normal P axis, V-rate 50- 99 Normal Electrocardiogram Stress Test Summary: 08/25/23: Stress ECG Conclusion 1. Resting electrocardiogram was within normal limits 2. Patient underwent testing using pharmacologic stress with regadenoson 3. Peak heart rate achieved was 51% of predicted maximal for age 4. The electrocardiographic portion of the test was nondiagnostic 5. The MPI report Echocardiogram Summary: 10/09/23: EF 59%, No significant valvular disease CT Summary: The diameter of the ascending thoracic aorta is enlarged, exhibiting maximum diameter 4.5 cm. This is similar to previous Pulmonary Function Summary: 08/25/23: Pulmonary Function Test Result Indications: Dyspnea Interpretation Spirometry: There is no airflow limitation. No bronchodilator response. Lung Volumes: There is some air trapping Diffusion Capacity: Normal diffusion Airway Pressure: Normal airways resistance Impression Normal pulmonary function with some air trapping which can be seen in emphysema of asthma. Clinical Correlation therefore is recommended. Anesthesia Assessment and Plan Anesthesia History Personal History: No History of Anesthesia Complications Family History: No Family History of Anesthesia Complications Exercise Tolerance Exercise Tolerance: Metabolic Equivalents>4 Cardiac & Pulmonary Exam Cardiac Exam: Normal S1/S2 Heart Sounds Pulmonary Exam: Clear Bilateral Breath Sounds Implantable Cardiac Device Does patient have a Pacemaker or an ICD?: No Airway Exam Known Difficult Airway: No Mallampati Class: 2 Mouth Opening: Normal (> 3cm) Thyromental Distance: Greater than 3 cm Neck Range of Motion: Full ROM Neck Circumference: Normal Teeth Condition: Normal Dentition ASA Classification ASA Score: ASA 2 Emergency Case?: No NPO Status NPO Status: NPO Clears >2 hours, Solids >8 hours Anesthesia Plan Resuscitation Status: Full Code Anesthesia Technique: MAC Anesthesia Airway Planned: Natural Airway Monitors Used: Standard Monitors Preoperative Comments:: Repeat cataract on other eye. No MKO for previous.
[2025-09-01 07:59] VITALS: BMI 36.0
[2025-09-01] MEDS: Lidocaine 1% Pres-Free 5 ML VIAL (08:45)
[2025-09-01] MEDS: Duovisc Viscoelastic System EACH 1 EACH (08:45)
[2025-09-01] MEDS: Moxifloxacin-PF 1 MG/ML VIAL (08:46)
[2025-09-01] MEDS: Phenylephrine/Lidocaine (15/10) MG/ML 1 ML VIAL (08:46)
[2025-09-01] MEDS: Povidone-Iodine Ophth 30 ML BTL (08:47)
[2025-09-01] MEDS: Balanced Salt Soln.-PLUS 500 ML BAG OP (08:47)
[2025-09-01] MEDS: Prednisolone 1%, Moxifloxacin 0.5%, Bromfenac 0.09% 5.6ML BTL OD (08:48)
[2025-09-01] MEDS: Tetracaine 0.5% 4 ML BTL OD (08:48)
[2025-09-01 09:07] VITALS: BP 131/88; PULSE 70; RESP 18; TEMP 36.8; O2SAT 99
--- NOTE | 2025-09-01 09:13 | W.PM.DSUDISC ---
Date of service: 09/01/25 Discharge Plan Disposition Patient Disposition: Home Discharge Details Attending Provider: Khang Greer Primary Care Provider: Megan Wharton Home Meds and New Rx's Prescriptions: No Action aspirin 81 mg tablet,delayed release (DR/EC) 81 mg PO DAILY tirzepatide (weight loss) 15 mg/0.5 mL pen injector 15 mg subcut QWEEK Qty: 6 3RF losartan 100 mg tablet 100 mg PO DAILY Qty: 90 3RF hydrochlorothiazide 25 mg tablet 25 mg PO QAM Qty: 90 3RF fluoxetine [Prozac] 20 mg capsule 20 mg PO DAILY Qty: 90 3RF budesonide-formoterol 160-4.5 mcg/actuation HFA aerosol inhaler 2 inh inhalation BID Qty: 10.2 3RF Rx Instructions: 2 puffs twice a day and 1 to 2 inhalations as needed every 4 hours. Max 12 puffs per day amlodipine 10 mg tablet 10 mg PO DAILY Qty: 90 3RF amiloride 5 mg tablet 5 mg PO DAILY Qty: 90 3RF albuterol sulfate 90 mcg/actuation HFA aerosol inhaler 2 puff IH QID PRN (Reason: shortness of breath or wheezing) Qty: 18 4RF Discharge Instructions Stand Alone Forms: [facility] Post-Op Cataract, Marnie Webb (DSU), Portal Information Discharge Orders Discharge Orders: Discharge Order (Routine); Ordered 09/01/25 Ordered By: Khang Greer DS: Diagnosis Discharge Diagnosis (1) Nuclear age-related cataract, right eye: Status: Acute (2) Posterior subcapsular age-related cataract, right eye: Status: Acute
--- NOTE | 2025-09-01 09:23 | ROE_ITS ---
Operative Note Operative Note PRE-OP DIAGNOSIS: Nuclear/posterior subcapsular cataract, right eye POST-OP DIAGNOSIS: same PROCEDURE: Cataract extraction using phacoemulsification with intraocular lens implant, right eye SURGEON: Khang Greer ANESTHESIA TYPE: Local By Surgeon and MAC Refer to Anesthesia Record ESTIMATED BLOOD LOSS: 0 PATHOLOGY: none sent COMPLICATIONS: None Patient was transported to: same day Patient's condition: stable Implants: [employer] Tecnis Eyhance [id number] Indications: Progressive visual loss due to cataract, right eye Procedure Description: CATARACT SURGERY OPERATIVE REPORT PREOPERATIVE DIAGNOSIS: 1. Nuclear/posterior subcapsular cataract, right eye POSTOPERATIVE DIAGNOSIS: Same OPERATION: 1. Cataract extraction using phacoemulsification with posterior chamber intraocular lens implant, right eye. IOL: IOL Bath Attendant/Model: [employer] T[employer]nis Eyhance [id number] IOL Power: + 20.5 diopters IOL Serial Number: [id number] Optic Diameter: 6.0mm Haptic/Overall Diameter: 13.0mm PHACO INFO: [employer]ae[employer] Mobileon Vision System with OZil and Active Fluidics Cumulative Dispersed Energy (CDE): 4.32 seconds SURGEON: Khang Greer MD, SHERRY ANESTHESIA: Monitored Anesthesia Care (MAC), with local sub-tenon's anesthetic infiltration COMPLICATIONS: None SPECIMENS: None INDICATIONS FOR PROCEDURE: The patient is a 60-year-old male with history of diminished visual acuity in his right eye secondary to the development of nuclear/posterior subcapsular cataract. He is significantly symptomatic that he desires cataract surgery and attempt to improve and maximize his vision. He has already undergone cataract surgery in the left eye and 2020 and is doing well postoperatively. He now presents for cataract surgery in the right eye. See office notes for detailed information. PROCEDURE: The correct surgical eye was identified and marked as the right eye and the pupil was dilated in the preoperative area using mydriatics and cycloplegics. The dilated pupil size was 6.0 mm. The patient elected to proceed without oral sedation. The patient was brought to the operating room where cardiopulmonary monitoring was instituted and surgical time-out was performed, confirming the correct operative eye and IOL power. Topical anesthesia was administered and ophthalmic povidone-iodine 5% was instilled into the conjunctival fornices. The aida-ocular area was prepped with Betadine 10% solution and draped in the usual sterile fashion for intraocular gentile rgery, including an aperture drape. A Tegaderm transparent film dressing was cut in half and used to cover the lashes and lid margins. Care was taken to sequester the lashes and lid margins under the Tegaderm dressing. A lid speculum was placed between the lids of the operative eye and the Tae [employer] Revalia operating microscope was maneuvered into position. Nalini scissors were then used to make a conjunctival buttonhole approximately 6mm posterior to the limbus in the inferonasal quadrant. Blunt dissection was carried out to expose bare sclera, and a blunt-tipped sub-tenon’s anesthesia cannula was introduced and passed posteriorly along the globe where non- preserved plain lidocaine was injected into posterior sub-Tenon’s space. A sideport knife was used to make a paracentesis port. Intraocular phenylephrine/lidocaine was injected into the anterior chamber. The anterior chamber was filled with viscoelastic. A keratome knife was used to construct a 2-plane clear corneal tunnel extending 2.0mm into clear cornea. A flap was raised on the anterior capsule and capsulorhexis forceps were used to complete a continuous curvilinear capsulorhexis of 5.0 mm. Balanced salt solution was then used to perform cortical cleaving hydrodissection and nuclear hydrodelineation until the lens could be freely rotated within the capsular bag. The lens nucleus was then disassembled and removed within the capsular bag and iris plane using phacoemulsification. Residual cortical material was removed using the I/A handpiece. The posterior capsule was carefully polished to remove as much residual lens epithelial cells as safely possible. The capsular bag was then inflated and the anterior chamber deepened with cohesive viscoelastic. The lens implant described above was inserted into the capsular bag using the Marcos and Addie Simplicity pre- loaded injector. A Kuglen hook was used to dial the IOL into position. Residual viscoelastic was then removed first from posterior to the IOL, then from the anterior chamber using the I/A handpiece. The lens implant was noted to center nicely within the capsular bag. The incisions were stromally hydrated, and the anterior chamber was reformed using BSS. Then 0.5cc of moxifloxacin 1.0mg/ml were injected into the capsular bag and anterior chamber. The incisions were checked with a Weck spear and found to be secure. Several drops of ophthalmic povidone-iodine 5% were then applied to the eye followed by two drops ocombination steroid/NSAID/antibiotic solution. The drapes were removed and a clear plastic protective eye shield was placed over the eye. The patient was then returned to [facility] Day Surgery in stable condition. Date of Procedure: 09/01/25
--- NOTE | 2025-09-01 09:23 | W.ANESPOSTOP ---
Postoperative Evaluation Date, Time and Location Date Performed: 09/01/25 Time Performed: 09:10 Patient Location: Day Surgery Unit Vital Signs Most Recent Imported Vital Signs: Most Recent Vital Signs Temp Pulse Resp BP Pulse Ox 36.8 C 70 18 131/88 99 09/01/25 09:07 09/01/25 09:07 09/01/25 09:07 09/01/25 09:07 09/01/25 09:07 Pain Score Most Recent Pain Score: Most Recent Pain Score Pain Level 0 09/01/25 09:07 Assessment Mental Status: Awake (Alert & Oriented to Patient Baseline) Airway and Respiratory Function: Patent airway with normal (patient baseline) respiratory exam Cardiovascular Function: Hemodynamically Stable Hydration Status: Adequately Hydrated Nausea & Vomiting: No Nausea or Vomiting Pain: Pt. Denies Any Pain Peripheral Nerve Block: Patient did not receive a nerve block
== END 2025-09-01 09:36 | disposition home or self-care (01) ==
LOC: SUR 06:51
PROVIDERS: PCP Nurse Practitioner Family; Visit Provider Ophthalmology
PROC: (CPT 66984; principal; 2025-09-01 08:15)
DX: H25.11 Age-related nuclear cataract, right eye (principal); H25.041 Posterior subcapsular polar age-related cataract, right eye; F17.209 Nicotine dependence, unspecified, with unspecified nicotine-induced disorders; Z98.42 Cataract extraction status, left eye
CPT/HCPCS: 66984; 00123; V2632; J2003